=== PATIENT | female | born 1980 ===

== ENCOUNTER 2025-09-19 01:04 | Emergency (ER) | payer SELFPAY ==
[2025-09-19 01:09] VITALS: BMI 19.5
[2025-09-19 01:19] VITALS: BP 122/90; PULSE 108; RESP 20; TEMP 37; O2SAT 98
--- NOTE | 2025-09-19 01:26 | PD.EDSKIN ---
ED Skin Abcess FB-RME/HPI General Chief complaint: Extremity Injury, Lower Stated complaint: POS SPIDER BITE Time Seen by Provider: 09/19/25 01:20 Arrival date/time: 09/19/25 01:04 45F with no significant PMH presents to ED with R knee pain after something poked her while she was working in the [employer] yesterday. Patient has not had a tetanus shot in the past 5 years and states not itching, only pain. Limitations: no limitations Related Data Home Medications ?Medication ?Instructions ?Recorded ?Confirmed prenat.vits,patricia,[id number] 1 tab PO DAILY 04/29/22 07/12/22 aspirin 81 mg capsule 81 mg PO QDAY 06/26/22 07/12/22 ferrous sulfate 325 mg (65 mg 325 mg PO QDAY 06/26/22 07/12/22 iron) tablet (iron) Previous Rx's ?Medication ?Instructions ?Recorded acetaminophen 300 mg-codeine 15 mg 1 tab PO Q8H PRN pain #14 tabs 07/15/22 tablet acetaminophen 500 mg tablet 500 mg PO Q6H PRN pain #30 tabs 07/15/22 ibuprofen 800 mg tablet 800 mg PO Q6H #30 tabs 07/15/22 clindamycin HCl 300 mg capsule 600 mg (2 x 300 mg) PO BID 7 days 09/19/25 (Cleocin HCl) #28 caps Allergies Allergy/AdvReac Type Severity Reaction Status Date / Time No Known Allergies Allergy Verified 09/19/25 01:12 Review of Systems Review of Systems Systems Reviewed: All systems reviewed, normal except as documented Integumentary/Breasts Skin/Breast: Reports as per HPI and Reports skin pain Past Medical History Past Medical History NEUROLOGIC: Negative Neurological Disorders or Seizures CARDIAC: Negative Cardiac Disorders or Congestive Heart Failure RESPIRATORY: Negative Chronic Obstructive Pulmonary Disease (COPD) or Asthma GASTROINTESTINAL: Negative Gastrointestinal Disorders, Hepatitis or Colorectal Cancer GENITOURINARY: Positive Genitourinary Disorders (UTI); Negative Renal Disease REPRODUCTIVE: Positive Previous Pregnancies; Negative Breast Cancer, Endometriosis, Pelvic Inflammatory Disease or Uterine Prolapse MUSCULOSKELETAL: Negative Musculoskeletal Disorders or Bone Cancer ENDOCRINE: Positive Endocrine Disorders; Negative Diabetes Mellitus Type 1 or Diabetes Mellitus Type 2 HEMATOLOGIC: Negative Blood Disorders or Anemia OTHER HISTORY: Positive Hospitalization; Negative Autoimmune Disease, Down Syndrome, Developmental Delay, Falls, Blood Transfusions, Blood Transfusion Reaction, Anesthesia Reactions, Organ Transplant, Chemotherapy, Radiation Therapy, Hyperbaric Therapy, MRSA, VRSA, Vancomycin-Resistant Enterococci, Human Immunodeficiency Virus (HIV), Chicken Pox, Measles, Mumps, Rubella ([place] Measles), Pertussis, Clostridium Difficile, Cancer, Breast Cancer, Cervical Cancer, Colorectal Cancer, Lung Cancer or Ovarian Cancer Family History FAMILY HISTORY: Negative Family Psychiatric Problems, Family Respiratory Disorders, Family Cardiac Disorders, Family Gastrointestinal Problems, Family Cancer, Family Surgery or Family Anesthesia Reaction Surgical History SURGICAL: Positive Section; Negative Organ Transplant Social History SMOKING STATUS: Never smoker ED Exam General Limitations: Present no limitations General appearance: Present alert and in no apparent distress Head Head exam: Present atraumatic Neck Neck exam: Present normal inspection, full ROM and trachea midline Chest Chest inspection: Present normal inspection and symmetric chest wall rise Extremities Exam Extremities exam: Present full ROM Expanded Lower Extremity Exam Knee exam: Present full ROM, swelling (R) and erythema Neurological Exam Neurological exam: Present alert and oriented X3 Psychiatric Psychiatric exam: Present normal affect and normal mood Skin Skin exam: Present warm, dry, intact and normal color Course Quality Measures none Orders Category Date Time Status Clindamycin [Cleocin] Med 09/19/25 01:21 Once 600 mg PO X1 ONE Naproxen [Naprosyn] Med 09/19/25 01:23 Once 500 mg PO X1 ONE TET,DIP/PERT AC (Adult)-Tdap [Boostrix Adult (Tdap) Med 09/19/25 01:21 Once Vacc] 0.5 ml IMI .ONCE ONE Vital Signs Vital signs: Vital Signs Temperature 98.6 F 09/19/25 01:19 Pulse Rate 108 H 09/19/25 01:19 Respiratory Rate 20 09/19/25 01:19 Blood Pressure 122/90 H 09/19/25 01:19 Pulse Oximetry (%) 98 09/19/25 01:19 Oxygen Delivery Method Room Air 09/19/25 01:19 O2 at 98% on RA and WNLs Skin / Abscess / Foreign Body MDM Narrative MDM Narrative:: 45F with no significant PMH presents to ED with R knee pain after something poked her while she was working in the [employer] yesterday. Patient has not had a tetanus shot in the past 5 years and states not itching, only pain. Physical exam reveals R puncture area on R knee with surrounding redness and swelling. Patient is afebrile, calm, and alert. Meds and alcohol and drug counselor given. Patient data External records reviewed:: [facility] previous records Clinical information provided by:: patient Social determinants that could affect healthcare access:: none Patient has the following chronic illnesses:: none How is presenting disease/condition affected by chronic disease/condition?: no chronic disease Evaluation data The following diagnostics were reviewed and interpreted by me:: other (specify) (none) Lab and/or radiology exams considered but not ordered:: not ordered Interpretation Summary: n/a Medications / Prescriptions Medications or Prescriptions considered but not ordered:: ordered Medication administrations:: Medication Administration History Clindamycin HCl (Clindamycin 150 Mg Capsule) 600 mg PO X1 ONE Stop: 09/19/25 01:22 Diphtheria/Tetanus/Acell Pertussis (Diphth,Pertuss(Acell),Tet Vac 0.5 Ml Syr- Adult) 0.5 ml IMi .ONCE ONE Stop: 09/19/25 01:22 Naproxen (Naproxen 250 Mg Tablet) 500 mg PO X1 ONE Stop: 09/19/25 01:24 above Consultations Consultation(s) initiated? (list below): No Diagnosis Skin/Abscess Differential Diagnosis: abscess of skin or subcutaneous tissue, viral exanthem, dermatophytosis, urticaria, herpes zoster, allergic reaction to drug, cellulitis, eczema, impetigo and contact dermatitis Most likely diagnosis given after review of the tests above:: cellulitis Admission Indicated Admission indicated?: not indicated Admission Request Was there a request for admission?: No Disposition Plan Disposition Plan: Discharge Discharge Attestation Discharge Attestation: The patient and all family members were given an opportunity to ask questions and understood the discharge instructions. Discharge instructions specifically effects, indications for sooner follow up or return to the emergency department, and the expected course of current diagnosis. Patient condition: Stable Discharge Plan Plan Patient Disposition: HOME (Self Care) Discharge Disposition comment: Stable Prescriptions/Referrals Prescriptions/Med Rec: New clindamycin HCl [Cleocin HCl] 300 mg capsule 600 mg PO BID 7 Days Qty: 28 0RF No Action Vitamin Tablet 1 tab PO DAILY ferrous sulfate [iron] 325 mg (65 mg iron) Tablet 325 mg PO QDAY aspirin 81 mg Capsule 81 mg PO QDAY acetaminophen-codeine 300-15 mg tablet 1 tab PO Q8H PRN (Reason: pain) Qty: 14 0RF ibuprofen 800 mg tablet 800 mg PO Q6H Qty: 30 0RF acetaminophen 500 mg tablet 500 mg PO Q6H PRN (Reason: pain) Qty: 30 0RF Problem List Clinical Impression: Cellulitis Patient/Caregiver Discharge Instructions Education Materials: ED Cellulitis Additional Instructions: Please follow-up with PCP within 24-48 hours and return immediately if symptoms worsen. Print Language: Kiswahili Stand Alone Forms: Patient Portal Info Letter PA/ZIPPER IRONER Supervising Physician PA/ZIPPER IRONER Supervising Physician: Dr. Garcia
[2025-09-19] MEDS: DIPHTH,PERTUSS(ACELL),TET VAC 0.5 ML SYR- ADULT IMi (01:39)
[2025-09-19] MEDS: CLINDAMYCIN 150 MG CAPSULE 600 MG PO (01:47)
[2025-09-19] MEDS: NAPROXEN 250 MG TABLET 500 MG PO (02:02)
== END 2025-09-19 02:31 | disposition home or self-care (01) ==
PROVIDERS: Emergency Provider Emergency Medicine; PCP Physician Assistant Medical
DX: S81.031A Puncture wound without foreign body, right knee, initial encounter (principal); L03.115 Cellulitis of right lower limb; X58.XXXA Exposure to other specified factors, initial encounter; Z23 Encounter for immunization
CPT/HCPCS: 90471; 90715; 99281; A9270